=== PATIENT | female | born 1960 | race African-American/Black ===

== ENCOUNTER 2020-09-09 16:16 | Emergency (ER) | payer MEDICARE, MEDICAID ==
[2020-09-09] MEDS ORDERED: Fluorescein Opthalmic Strip ONE (16:24)
[2020-09-09] MEDS ORDERED: Tetracaine 0.5% PF 4 ML BOT ONE (16:24)
[2020-09-09] MEDS ORDERED: Erythromycin Base 0.5% Ophth Oint 3.5 gm Tube ONE (16:35)
== END 2020-09-09 16:55 | disposition home or self-care (01) ==
LOC: MADERS 16:16
DX: S05.02XA Injury of conjunctiva and corneal abrasion without foreign body, left eye, initial encounter (principal); X58.XXXA Exposure to other specified factors, initial encounter
CPT/HCPCS: 99283